=== PATIENT | female | born 1945 | race Caucasian/White ===

== ENCOUNTER 2017-06-25 14:20 | Emergency (ER) | payer MEDICARE, OTHER ==
[~2017-06-25] VITALS: Ht 165.1 cm; Wt 58.5 kg
[~2017-06-25 14:20] MED LIST: ACET1TAB49; BENA40TA41; INSU1INS; LORA-52; METF1000; OMEP20TA42; PRA40
[2017-06-25 14:25] VITALS: Ht 165.1 cm; Wt 58.5 kg
[2017-06-25] MEDS ORDERED: TETRACAINE 0.5% 4 ML OPH BOTH EYES ONE (17:30)
[2017-06-25] MEDS ORDERED: FLUORESCEIN STRIP BOTH EYES ONE (17:30)
--- NOTE | 2017-06-25 17:53 | ERA ---
ER Documentation Chief Complaint Date/Time DATE: 06/25/17 TIME: 17:49 Chief Complaint Complains of eye pain (THELMA ADAN PA-C) HPI 71-year-old female with history of diabetes and hypertension with a chief complaint of left eye redness 1 day. Describes the symptoms as increasing blurriness. Also describes a left-sided headache. Denies changes in hearing, jaw claudication, fever, tunnellike vision loss, vision loss, or similar symptoms in the past. No recent travel. (THELMA ADAN PA-C) ROS All systems reviewed and are negative except as per history of present illness. (THELMA ADAN PA-C) Medications Home Meds Active Scripts Acetaminophen* (Tylophen*) 500 Mg Capsule, 1 CAP PO Q6H Y for PAIN AND OR ELEVATED TEMP, #20 CAP Prov:THELMA ADAN PA-C 06/25/17 Reported Medications Pravastatin Sodium* (Pravachol*) 40 Mg Tablet 02/25/11 Omeprazole (Omeprazole) 20 Mg Tablet. 02/25/11 Metformin Hcl* (Metformin Hcl*) 1,000 Mg Tablet 02/25/11 Loratadine (Alavert) 10 Mg Tablet 02/25/11 Insulin Admin. Supplies (Autoject 2) 1 Box Insuln.pen 02/25/11 Benazepril Hcl* (Benazepril Hcl*) 40 Mg Tablet 02/25/11 Acetaminophen/Phenyltolx Cit (Asa Free Analgesic Tablet) 1 Tab Tablet 02/25/11 Allergies Allergies: Coded Allergies: No Known Drug Allergies (Verified Allergy, Mild, 02/25/11) PMhx/Soc History of Surgery: No Anesthesia Reaction: No Hx Neurological Disorder: No Hx Respiratory Disorders: No Hx Cardiac Disorders: Yes (HYPERTENSION AND HIGH CHOLESTEROL) Hx Psychiatric Problems: No Hx Miscellaneous Medical Probl: No Hx Alcohol Use: No Hx Substance Use: No Hx Tobacco Use: No Smoking Status: Never smoker (THELMA ADAN PA-C) Physical Exam Vitals Vital Signs Date Time Temp Pulse Resp B/P Pulse Ox O2 Delivery O2 Flow Rate FiO2 06/25/17 20:05 97.8 74 16 156/65 96 Room Air 06/25/17 14:25 99.4 121 20 150/68 96 (RONALD CASTELLON DO) Physical Exam Const: Healthy-appearing. Well-nourished. Well-developed. No acute distress. Eyes: Left diffuse scleral injection. EOMI and WARREN bilaterally. No nystagmus. Ophthalmoscope exam revealed optic disc ratio estimated within normal limits, no blood in thunder retina, no pill retina. Mild black areas on the lower aspect of the exam. Neur: Awake, alert and oriented x3. Neurovascularly intact bilaterally. Psych: Normal Mood and Affect. Head: Normocephalic, Atraumatic. Ears: Normal External Ears, EACs clear, TM normal bilaterally without erythema. Nose: Normal nose without discharge, septal deviation, or sinus tenderness. Oral: No oral edema visualized. Mucous membranes moist and pink. Neck: No cervical lymphadenopathy, masses or goiter palpated. Trachea midline. Supple ~ No meningismus. Pulm: Good air movement in upper and lower respiratory tracts. No dyspnea, stridor, tripoding or drooling. Clear to auscultation bilaterally. Cardio: Regular rate and rhythm; No murmurs, gallops or rubs auscultated. No JVD grossly observed. Radial and posterior tibial pulses 2+ bilaterally. No cyanosis. Capillary refill less than 2 seconds. Abd: Soft, non tender, non distended. No guarding, masses. Normal bowel sounds. No McBurney's point tenderness. MS: Normal motor strength, normal tone with gross examination. Skin: No petechiae or rashes. No ulcer, induration, jaundice. Good turgor. Back: No midline, flank or CVA tenderness. Ext: No cyanosis, edema or palpable cord. Normal movement of all extremities grossly observed. (THELMA ADAN PA-C) Result Diagram: 06/25/17180906/25/171809 Results 24 hrs Laboratory Tests Test 06/25/17 18:10 White Blood Count 10.010^3/ul Red Blood Count 3.8610^6/ul Hemoglobin 10.6g/dl Hematocrit 32.7% Mean Corpuscular Volume 84.7fl Mean Corpuscular Hemoglobin 27.5pg Mean Corpuscular Hemoglobin Concent 32.4g/dl Red Cell Distribution Width 13.6% Platelet Count 47934^3/UL Mean Platelet Volume 11.0fl Neutrophils % 55.8% Lymphocytes % 35.1% Monocytes % 6.2% Eosinophils % 2.4% Basophils % 0.3% Nucleated Red Blood Cells % 0.0/100WBC Neutrophils # (Manual) 5.610^3/ul Lymphocytes # 3.510^3/ul Monocytes # 0.610^3/ul Eosinophils # 0.210^3/ul Basophils # 0.010^3/ul Nucleated Red Blood Cells # 0.010^3/ul Erythrocyte Sedimentation Rate 25mm/Hr Prothrombin Time 12.7Sec Prothrombin Time Ratio 1.0 INR International Normalized Ratio 0.95 Activated Partial Thromboplast Time 30.5Sec Sodium Level 143mmol/L Potassium Level 4.4mmol/L Chloride Level 109mmol/L Carbon Dioxide Level 19mmol/L Anion Gap 19 Blood Urea Nitrogen 14mg/dl Creatinine 0.97mg/dl Glucose Level 59mg/dl Calcium Level 9.7mg/dl Troponin I < 0.012ng/ml Current Medications Medications (Trade) Dose Ordered Sig/Elina Route PRN Reason Start Time Stop Time Status Last Admin Dose Admin Tetracaine HCl (Tetracaine 0.5% Steri-Unit Daina) 1 drop ONCE ONCE BOTH EYES 06/25/17 17:30 9 17:31 DC Fluorescein Sodium (Xbtsl-[id number]-Zfqaf) 1 strip ONCE ONCE BOTH EYES 06/25/17 17:30 06/25/17 17:31 DC (RONALD CASTELLON DO) Procedures/MDM This is a 71-year-old female with a chief complaint of left red painful eye as described in history and physical examination. Telemeter was used with pressures of 25 and both eyes bilaterally. Fluorescein stain and Cohen lamp unremarkable. No foreign body visualized. Slit-lamp unavailable. Presented the case to my attending Dr. Castellon who suggested sed rate. Sed rate 25. All other labs largely unremarkable. X-ray was read by the radiologist, given the following impression: Possible hiatal hernia. Copy of imaging results has been given to the patient with instructions to follow-up with PCP. I have little suspicion for acute glaucoma, temporal arteritis, keratitis, uveitis, other infection, obstruction or other emergent pathologies. Most likely diagnosis at this time is acute red eye due to unknown etiology. My attending Dr. Castellon has agreed with my assessment and plan. Presented the case to my attending Dr. Castellon who has agreed with my assessment and plan. Patient will be treated outpatient with acetaminophen and instructions to follow-up with ophthalmology within the next 1-2 days. All instructions have been verbalized to the patient. Strategic Planning Analyst was the discharge lady. I have spoke with the patient regarding their condition and future management. They have verbally responded that they understand their status and treatment plan. The patients vitals are stable, and their current condition is appropriate for discharge. The patient will be given discharge instructions with return precautions. (THELMA ADAN PA-C) I agree with opthomology followup and workup of this patient. (RONALD CASTELLON DO) Departure Diagnosis: Primary Impression: Eye problem Condition: Stable Additional Instructions: Follow-up with geographic area intelligence officer as possible. It was has been handed to you.. Return the the emergency department immediately if symptoms worsen or change. If you have any questions regarding medications, ask your pharmacist or us before you leave. If any adverse reactions occur while taking your medications, discontinue the treatment and return to the emergency department immediately. Take your medications as directed, and complete the entire course of treatment. THELMA ADAN PA-C Jun 25, 2017 17:53 RONALD CASTELLON DO Jun 26, 2017 21:00
[2017-06-25 18:16] LABS: BASOPHILS % 0.3 % (0.0-2.0); EOSINOPHILS # 0.2 10^3/ul (0.0-0.5); EOSINOPHILS % 2.4 % (0.0-7.0); HEMATOCRIT 32.7 % (37.0-47.0); HEMOGLOBIN 10.6 g/dl (12.0-16.0); LYMPHOCYTES # 3.5 10^3/ul (0.8-2.9); LYMPHOCYTES % 35.1 % (15.0-51.0); MEAN CORPUSCULAR HEMOGLOBIN 27.5 pg (29.0-33.0); MEAN CORPUSCULAR HGB CONC 32.4 g/dl (32.0-37.0); MEAN CORPUSCULAR VOLUME 84.7 fl (82.0-101.0); MONOCYTE # 0.6 10^3/ul (0.3-0.9); MONOCYTES % 6.2 % (0.0-11.0); NEUTROPHILS % 55.8 % (39.0-77.0); PLATELET COUNT 324 10^3/UL (140-415); RED BLOOD COUNT 3.86 10^6/ul (4.20-5.40); RED CELL DISTRIBUTION WIDTH 13.6 % (11.5-14.5)
--- NOTE | 2017-06-25 18:17 | RADRPT ---
AMENDMENT: 06/25/2017 6:22:21 PM Wali Marcano Md Addendum: Recommend obtaining a lateral view for confirmation that this curvilinear density is a hi atal hernia and to exclude the possibility that this curvilinear density represents a distal descend ing thoracic aneurysm Call report was made to Dr. casas on 06/25/2017 6:20:34 PM PROCEDURE: Chest x-ray CLINICAL INDICATION: Chest pain TECHNIQUE: Chest single view COMPARISON: None FINDINGS: The heart is normal in size. The pulmonary vessels are normal in caliber. There is a curvilinear r etrocardiac density which likely represents a hiatal hernia. Lungs otherwise clear. The costophreni c angles are sharp. The visualized bony thorax is unremarkable. IMPRESSION: No acute cardiopulmonary disease. Curvilinear retrocardiac density which likely represents a hiatal hernia. Mild atherosclerotic aortic calcification RPTAT: HH .Wali Marcano MD, MD Date Time Electronically viewed and signed by .Wali Marcano MD, on 06/25/2017 18:22 .W/
[2017-06-25 18:29] LABS: INR 0.95; PROTIME 12.7 Sec (12.2-14.2)
[2017-06-25 18:30] LABS: PARTIAL THROMBOPLASTIN TIME 30.5 Sec (25.0-35.0)
[2017-06-25 18:33] LABS: ANION GAP 19 (8-16); BLOOD UREA NITROGEN 14 mg/dl (7-20); CALCIUM 9.7 mg/dl (8.4-10.2); CARBON DIOXIDE 19 mmol/L (21-31); CHLORIDE 109 mmol/L (97-110); CREATININE 0.97 mg/dl (0.44-1.00); GLUCOSE 59 mg/dl (70-220); POTASSIUM 4.4 mmol/L (3.5-5.1); SODIUM 143 mmol/L (135-144)
[2017-06-25 18:57] LABS: TROPONIN-I < 0.012 ng/ml (0.00-0.12)
[2017-06-25] MEDS ORDERED: ACET500C5 PO (19:39)
[2017-06-25 20:05] VITALS: BP 156/65; PULSE 74; RESP 16; TEMP 97.8
== END 2017-06-25 20:06 | disposition home or self-care (01) ==
LOC: FTE 14:20
DX: H57.8 Other specified disorders of eye and adnexa (principal); E11.9 Type 2 diabetes mellitus without complications; I10 Essential (primary) hypertension; R07.9 Chest pain, unspecified; Z79.4 Long term (current) use of insulin; Z79.84 Long term (current) use of oral hypoglycemic drugs
CPT/HCPCS: 36415; 71010; 80048; 84484; 85025; 85610; 85651; 85730; 93005